=== PATIENT | male | born 1985 ===

== ENCOUNTER 2016-06-29 00:11 | Inpatient (IN) | payer OTHER ==
[2016-06-29 00:31] VITALS: BMI 26.4
--- NOTE | 2016-06-29 00:38 | ED PDOC ---
Arrival/HPI - General Chief Complaint: Abdominal Pain Time Seen by Provider: 06/29/16 00:16 Historian: Patient - History of Present Illness Narrative History of Present Illness (Text): 06/29/16 00:36 Blake Rosario is a 30 year old male, with no significant past medical history, who presents to the ED accompanied by friend complaining of RLQ pain for the past 4 days. Patient denies any shortness of breath, chest pain, nausea , vomiting, diarrhea, urinary symptoms, back pain, neck pain, headache, dizziness, or any other complaints. Time/Duration: < week (4 days) Symptom Onset: Gradual Symptom Course: Unchanged Activities at Onset: Rest, Light Context: Home Past Medical History - Provider Review Nursing Documentation Reviewed: Yes - Infectious Disease Hx of Infectious Diseases: None - Psychiatric Hx Substance Use: No - Anesthesia Hx Anesthesia: No Hx Anesthesia Reactions: No Hx Malignant Hyperthermia: No Family/Social History - Physician Review Nursing Documentation Reviewed: Yes Family/Social History: No Known Family HX Smoking Status: Never Smoked Hx Alcohol Use: Yes Frequency of alcohol use: Socially Hx Substance Use: No Allergies/Home Meds Allergies/Adverse Reactions: Allergies No Known Allergies Allergy (Verified 06/29/16 00:31) Review of Systems - Physician Review All systems were reviewed & negative as marked: Yes - Review of Systems Constitutional: Normal. absent: Fevers Eyes: Normal ENT: Normal Respiratory: Normal. absent: SOB Cardiovascular: Normal. absent: Chest Pain Gastrointestinal: Abdominal Pain. absent: Diarrhea, Nausea, Vomiting Genitourinary Male: Normal. absent: Dysuria, Frequency, Hematuria, Urinary Output Changes Musculoskeletal: Normal. absent: Back Pain, Neck Pain Skin: Normal. absent: Rash Neurological: Normal. absent: Headache, Dizziness Endocrine: Normal Hemo/Lymphatic: Normal Psychiatric: Normal Physical Exam Vital Signs Reviewed: Yes Vital Signs Temp Pulse Resp BP Pulse Ox 06/29/16 04:23 99.0 F 83 18 137/81 100 06/29/16 00:32 100.7 F H 98 H 17 142/89 98 Temperature: Febrile Blood Pressure: Normal Pulse: Regular Respiratory Rate: Normal Appearance: Positive for: Well-Appearing, Non-Toxic, Comfortable Pain Distress: None Mental Status: Positive for: Alert and Oriented X 3 - Systems Exam Head: Present: Atraumatic, Normocephalic Pupils: Present: PERRL Extroacular Muscles: Present: EOMI Conjunctiva: Present: Normal Mouth: Present: Moist Mucous Membranes Neck: Present: Normal Range of Motion Respiratory/Chest: Present: Clear to Auscultation, Good Air Exchange. No: Respiratory Distress, Accessory Muscle Use Cardiovascular: Present: Regular Rate and Rhythm, Normal S1, S2. No: Murmurs Abdomen: Present: Tenderness (RLQ tenderness), Normal Bowel Sounds. No: Distention, Peritoneal Signs Upper Extremity: Present: Normal Inspection. No: Cyanosis, Edema Lower Extremity: Present: Normal Inspection. No: Edema Neurological: Present: GCS=15, CN II-XII Intact, Speech Normal Skin: Present: Warm, Dry, Normal Color. No: Rashes Psychiatric: Present: Alert, Oriented x 3, Normal Insight, Normal Concentration Medical Decision Making ED Course and Treatment: 06/29/16 00:37 Impression: 30 y/o male c/o RLQ pain for 4 days. Plan: -- CT Abdomen and Pelvis -- Labs, lipase, blood culture -- Urinalysis -- IV fluids -- Reassess and disposition Progress Notes: 06/29/16 04:11 Reviewed labs, WBC: 13.3. Reviewed radiology, CT Abdomen and Pelvis shows: Positive appendicitis with abscess formation. Although the appendiceal borders are still identifiable, I suspect microperforation as there is indistinctness of the wall as it abuts the abscess as well as a very large amount of inflammation Paged surgical services manager control supervisor. 06/29/16 04:[address] Linares, surgical services manager control supervisor, who evaluated pt in ER , concurs with findings. Paged Dr. Barker, awaiting call back. 06/29/16 04:[address] Barker, surgeon, who is aware and agrees with plan. Accepts pt in to his service. Pt will be admitted to [facility] of appendicitis. Pt is no acute distress. Discussed plan and hospital admission plan with pt, who is aware and verbalizes understanding. - Lab Interpretations Microbiology Results: Microbiology Results 06/29/16 01:37 Blood Blood Culture - Preliminary NO GROWTH AFTER 24 HOURS 06/29/16 01:00 Blood Blood Culture - Preliminary NO GROWTH AFTER 24 HOURS Lab Results: 06/29/16 01:00 06/29/16 01:00 Lab Results 06/29/16 01:00: WBC 13.3 H, RBC 4.42, Hgb 12.4 L, Hct 36.7 L, MCV 83.0, MCH 28.1 , MCHC 33.8, RDW 18.2 H, Plt Count 219, MPV 8.7, Sodium 139, Potassium 3.8, Chloride 96 L, Carbon Dioxide 31, Anion Gap 16, BUN 8, Creatinine 0.6, Est GFR ( Amer) > 60, Est GFR (Non-Af Amer) > 60, Random Glucose 120 H, Calcium 9.4, Total Bilirubin 1.4 H, AST 34, ALT 20, Alkaline Phosphatase 102, Total Protein 9.2 H, Albumin 4.5, Globulin 4.7, Albumin/Globulin Ratio 1.0 L, Lipase 101 I have reviewed the lab results: Yes - RAD Interpretation Narrative RAD Interpretations (Text): CT Abdomen and Pelvis shows: The liver is normal. The spleen is normal. The pancreas is normal. No gallstones. No hydronephrosis or perinephric stranding. The appendix is identified on coronal images 52 through 65, axial images 94 - 106 (terminal ileum coronal image 51, axial images 93). The appendix is dilated measuring up to 10 mm. There is lack of intraluminal air with the lumen being filled with fluid. There is wall thickening and wall hyperemia. There is a large amount stranding in the surrounding fat consistent with inflammation. A fluid collection is present along the lateral aspect of the appendix (coronal image 60-61, axial images 103 through 107) measuring approximately 2.5 x 3 x 5 cm. There is a thin enhancing rim surrounding the fluid as well as a large amount of surrounding inflammation, both of which support abscess formation. IMPRESSION: Positive appendicitis with abscess formation. Although the appendiceal borders are still identifiable, I suspect microperforation as there is indistinctness of the wall as it abuts the abscess as well as a very large amount of inflammation Radiology Orders: 06/29/16 00:42 ABD & PELVIS IV CONTRAST ONLY [CT] Stat Flight Engineer Performance Qualified: Radiologist - Medication Orders Current Medication Orders: Acetaminophen (Tylenol 325mg Tab) 650 mg PO Q6H PRN PRN Reason: Fever >100.4 F Acetaminophen (Tylenol 650 Mg Supp) 650 mg RC Q6H PRN PRN Reason: Fever >100.4 F Hydromorphone HCl (Dilaudid) 0.5 mg IVP Q4H PRN PRN Reason: Pain, severe (8-10) Sodium Chloride (Sodium Chloride 0.9%) 1,000 mls @ 100 mls/hr IV .Q10H CHALINO Last Admin: 06/29/16 04:26 Dose: 100 MLS/HR eMAR Start Stop Document 06/29/16 04:26 MR (Rec: 06/29/16 04:26 MR [id number]) Intravenous Solution Start Date 06/29/16 Start Time 04:26 Morphine Sulfate (Morphine) 2 mg IVP Q4H PRN PRN Reason: Pain, moderate (4-7) Ondansetron HCl (Zofran Inj) 4 mg IVP Q4H PRN PRN Reason: Pain, moderate (4-7) Discontinued Medications Bupivacaine HCl (Marcaine 0.5%) Confirm Administered Dose 30 ml .ROUTE .STK-MED ONE Stop: 06/29/16 12:32 Last Admin: 06/29/16 14:16 Dose: 22 ML Fentanyl (Fentanyl) Confirm Administered Dose 100 mcg .ROUTE .STK-MED ONE Stop: 06/29/16 12:46 Fentanyl (Fentanyl) Confirm Administered Dose 100 mcg .ROUTE .STK-MED ONE Stop: 06/29/16 14:05 Glycopyrrolate (Robinul) Confirm Administered Dose 0.4 mg .ROUTE .STK-MED ONE Stop: 06/29/16 13:11 Hydromorphone HCl (Dilaudid) 0.5 mg IVP Q15M PRN PRN Reason: Pain, moderate (4-7) Stop: 06/29/16 13:54 Hydromorphone HCl (Dilaudid) 0.5 mg IVP Q15M PRN PRN Reason: Pain, moderate (4-7) Stop: 06/29/16 16:52 Sodium Chloride (Sodium Chloride 0.9%) 1,000 mls @ 999 mls/hr IV .Q1H1M STA Stop: 06/29/16 01:43 Last Admin: 06/29/16 01:17 Dose: 999 MLS/HR eMAR Start Stop Document 06/29/16 01:17 KEVIN (Rec: 06/29/16 01:17 KEVIN [id number]) Intravenous Solution Start Date 06/29/16 Start Time 01:17 End Date 06/29/16 End time 02:18 Total Infusion Time 61 Piperacillin Sod/Tazobactam Sod (Zosyn 3.375 In Ns 100ml) 100 mls @ 200 mls/hr IV STAT STA PRN Reason: Protocol Stop: 06/29/16 04:42 Last Admin: 06/29/16 04:32 Dose: 200 MLS/HR eMAR Start Stop Document 06/29/16 04:32 MR (Rec: 06/29/16 04:32 MR [id number]) Intravenous Solution Start Date 06/29/16 Start Time 04:32 End Date 06/29/16 End time 05:02 Total Infusion Time 30 Metronidazole (Flagyl) 100 mls @ 100 mls/hr IVPB STAT STA PRN Reason: Protocol Stop: 06/29/16 05:13 Last Admin: 06/29/16 05:04 Dose: 100 MLS/HR eMAR Start Stop Document 06/29/16 05:04 MR (Rec: 06/29/16 05:05 MR [id number]) Intravenous Solution Start Date 06/29/16 Start Time 05:05 End Date 06/29/16 End time 06:05 Total Infusion Time 60 Piperacillin Sod/Tazobactam Sod (Zosyn 3.375 In Ns 100ml) 100 mls @ 200 mls/hr IVPB Q6H CHALINO PRN Reason: Protocol Last Admin: 06/29/16 09:56 Dose: 200 MLS/HR eMAR Start Stop Document 06/29/16 09:56 KAILEY (Rec: 06/29/16 09:56 KAILEY [id number]) Intravenous Solution Start Date 06/29/16 Start Time 09:56 End Date 06/29/16 End time 10:26 Total Infusion Time 30 Lactated Ringer's (Lactated Ringer's) 1,000 mls @ 75 mls/hr IV .[id number] CHALINO Stop: 06/29/16 14:46 Piperacillin Sod/Tazobactam Sod (Zosyn 2.25 Gm In 0.9% 100 Ml) 100 mls @ 100 mls/hr IVPB Q6 CHALINO PRN Reason: Protocol Stop: 06/30/16 00:59 Last Admin: 06/29/16 23:55 Dose: 100 MLS/HR eMAR Start Stop Document 06/29/16 23:55 KGD (Rec: 06/29/16 23:55 KGD [id number]) Intravenous Solution Start Date 06/29/16 Start Time 23:55 End Date 06/29/16 End time 01:55 Total Infusion Time -1260 Lactated Ringer's (Lactated Ringer's) 1,000 mls @ 100 mls/hr IV .Q10H CHALINO Stop: 06/29/16 17:01 Iohexol (Omnipaque 350 100 Ml) Confirm Administered Dose 350 mg .ROUTE .STK-MED ONE Stop: 06/29/16 01:59 Ketorolac Tromethamine (Toradol) Confirm Administered Dose 30 mg .ROUTE .STK- MED ONE Stop: 06/29/16 13:15 Lidocaine (Lidocaine (Bolus)) Confirm Administered Dose 100 mg IV .STK-MED ONE Stop: 06/29/16 12:46 Neostigmine Methylsulfate (Neostigmine Methylsulfate) Confirm Administered Dose 3 mg IV .STK-MED ONE Stop: 06/29/16 13:11 Ondansetron HCl (Zofran Inj) Confirm Administered Dose 4 mg .ROUTE .STK-MED ONE Stop: 06/29/16 13:15 Propofol (Diprivan) Confirm Administered Dose 400 mg .ROUTE .STK-MED ONE Stop: 06/29/16 12:46 Rocuronium [place] (Zemuron) Confirm Administered Dose 50 mg .ROUTE .STK-MED ONE Stop: 06/29/16 12:47 Succinylcholine Chloride (Quelicin) Confirm Administered Dose 200 mg IV .STK- MED ONE Stop: 06/29/16 12:47 - Scribe Statement The provider has reviewed the documentation as recorded by the Lazarus Michaels Provider Attestation: All medical record entries made by the Lazarus were at my direction and personally dictated by me. I have reviewed the chart and agree that the record accurately reflects my personal performance of the history, physical exam, medical decision making, and the department course for this patient. I have also personally directed, reviewed, and agree with the discharge instructions and disposition. Disposition/Present on Arrival - Present on Arrival Any Indicators Present on Arrival: No History of DVT/PE: No History of Uncontrolled Diabetes: No Urinary Catheter: No History of Decub. Ulcer: No History Surgical Site Infection Following: None - Disposition Have Diagnosis and Disposition been Completed?: Yes Diagnosis: Appendicitis Disposition: HOSPITALIZED Disposition Time: 04:31 Patient Plan: Admission Patient Problems: Current Active Problems Problem Status Diagnosed Appendicitis Acute Condition: GOOD
[2016-06-29] MEDS ORDERED: Sodium Chloride 0.9% 1,000 ML IV STA (00:43)
[2016-06-29 01:10] LABS: HEMATOCRIT 36.7 % (42.0-52.0); MEAN CORPUSCULAR HEMOGLOBIN 28.1 pg (25.0-35.0); MEAN CORPUSCULAR HGB CONC 33.8 g/dl (31.0-37.0); MEAN PLATELET VOLUME 8.7 fl (7.0-11.0); RED CELL DISTRIBUTION WIDTH 18.2 % (11.5-14.5); WHITE BLOOD COUNT 13.3 10^3/ul (4.5-11.0)
[2016-06-29 01:23] LABS: ALKALINE PHOSPHATASE 102 U/L (38-133); ALT/SGPT 20 U/L (7-56); AST/SGOT 34 U/L (15-59); BILIRUBIN,TOTAL 1.4 mg/dL (0.2-1.3); BLOOD UREA NITROGEN 8 mg/dL (7-21); CALCIUM 9.4 mg/dL (8.4-10.5); CARBON DIOXIDE 31 mmol/L (21-33); CHLORIDE 96 mmol/L (98-107); GFR AFRICAN-AMERICAN > 60; GLUCOSE,RANDOM 120 mg/dL (70-110); LIPASE 101 U/L (23-300); POTASSIUM 3.8 mmol/L (3.6-5.0); SODIUM 139 mmol/L (132-148); TOTAL PROTEIN 9.2 g/dL (5.8-8.3)
[2016-06-29] MEDS ORDERED: Iohexol 350 MG/100 ML VIAL ONE (01:58)
--- NOTE | 2016-06-29 04:07 | CT ---
EXAM: CT Abdomen and Pelvis With Intravenous Contrast. CLINICAL HISTORY: 30 years old, male; Pain; Abdominal pain; Localized; Right lower quadrant (rlq); Additional info: Rlq abdominal pain TECHNIQUE: Axial computed tomography images of the abdomen and pelvis with intravenous contrast. This CT exam was performed using one or more of the following dose reduction techniques: automated exposure control, adjustment of the mA and/or kV according to patient size, and/or use of iterative reconstruction technique. Coronal and sagittal reformatted images were created and reviewed. CONTRAST: 100 mL of omni 350 administered intravenously. EXAM DATE/TIME: 06/29/2016 12:42 AM COMPARISON: No relevant prior studies available. FINDINGS: The liver is normal. The spleen is normal. The pancreas is normal. No gallstones. No hydronephrosis or perinephric stranding. The appendix is identified on coronal images 52 through 65, axial images 94 - 106 (terminal ileum coronal image 51, axial images 93). The appendix is dilated measuring up to 10 mm. There is lack of intraluminal air with the lumen being filled with fluid. There is wall thickening and wall hyperemia. There is a large amount stranding in the surrounding fat consistent with inflammation. A fluid collection is present along the lateral aspect of the appendix (coronal image 60-61, axial images 103 through 107) measuring approximately 2.5 x 3 x 5 cm. There is a thin enhancing rim surrounding the fluid as well as a large amount of surrounding inflammation, both of which support abscess formation. IMPRESSION: Positive appendicitis with abscess formation. Although the appendiceal borders are still identifiable, I suspect microperforation as there is indistinctness of the wall as it abuts the abscess as well as a very large amount of inflammation.
[2016-06-29] MEDS ORDERED: Piperacillin/Tazobact 3.375 gm 100 ML IV STA (04:13)
[2016-06-29] MEDS ORDERED: Morphine 2 mg/ml ISec IVP PRN (04:13)
[2016-06-29] MEDS ORDERED: metroNIDAZOLE IV 500 mg/100 ml 100 ML IVPB STA (04:14)
[2016-06-29] MEDS: Sodium Chloride 0.9% 1,000 ML IV SCH (04:26)
--- NOTE | 2016-06-29 08:27 | CP.PCM.HP ---
History of Present Illness - History of Present Illness History of Present Illness: H&P Pt is a 30M with no PMHx who presented to [facility] [place] with complaints of abdominal pain that started on thursday. Pt states pain is located in the RLQ w/o any radiation. He initially attributed the pain to a regular stomach ache and decided to wait it out. However, last night pain increased and he came to the ER. He denies any other symptoms such N/V/D. Denies F/C. In the ER, a CT abdomen/pelvis was obtained and shows appendicitis with surrounding inflammatory changes likely secondary to microperforation. Surgery called to evaluate. Currently, pt is very comfortable and states his pain is better. He denies other complaints at this time. PMHx: denies PSHx: denies SocialHx: denies smoking/drugs, social EtOH NKDA Present on Admission - Present on Admission Any Indicators Present on Admission: No Review of Systems - Review of Systems All systems: reviewed and no additional remarkable complaints except (as per HPI ) Past Patient History - Infectious Disease Hx of Infectious Diseases: None - Past Social History Smoking Status: Never Smoked Alcohol: Social - CARDIAC Hx Cardiac Disorders: No - PULMONARY Hx Respiratory Disorders: No - NEUROLOGICAL Hx Neurological Disorder: No - HEENT Hx HEENT Problems: No - RENAL Hx Chronic Kidney Disease: No - ENDOCRINE/METABOLIC Hx Endocrine Disorders: No - HEMATOLOGICAL/ONCOLOGICAL Hx Blood Disorders: No - INTEGUMENTARY Hx Dermatological Problems: No - MUSCULOSKELETAL/RHEUMATOLOGICAL Hx Musculoskeletal Disorders: No Hx Falls: No - GASTROINTESTINAL Hx Gastrointestinal Disorders: No - GENITOURINARY/GYNECOLOGICAL Hx Genitourinary Disorders: No - PSYCHIATRIC Hx Psychophysiologic Disorder: No - SURGICAL HISTORY Hx Surgeries: No - ANESTHESIA Hx Anesthesia: No Hx Anesthesia Reactions: No Hx Malignant Hyperthermia: No Meds Allergies/Adverse Reactions: Allergies Allergy/AdvReac Type Severity Reaction Status Date / Time No Known Allergies Allergy Verified 06/29/16 00:31 Physical Exam - Constitutional Appears: Well, No Acute Distress - Head Exam Head Exam: ATRAUMATIC, NORMOCEPHALIC - Eye Exam Eye Exam: Normal appearance - ENT Exam ENT Exam: Mucous Membranes Moist - Respiratory Exam Respiratory Exam: NORMAL BREATHING PATTERN - Cardiovascular Exam Cardiovascular Exam: RRR - GI/Abdominal Exam GI & Abdominal Exam: Soft, Tenderness (RLQ). absent: Distended, Guarding, Rebound - Extremities Exam Extremities exam: Positive for: full ROM. Negative for: tenderness - Neurological Exam Neurological exam: Alert, Oriented x3 - Skin Skin Exam: Dry, Intact, Warm Results - Vital Signs Recent Vital Signs: Last Vital Signs Temp 98.6 F 06/29/16 08:13 Pulse 70 06/29/16 08:13 Resp 20 06/29/16 08:13 BP 127/81 06/29/16 08:13 Pulse Ox 99 06/29/16 08:13 - Labs Result Diagrams: 06/29/16 01:00 06/29/16 01:00 - Imaging and Cardiology CT scan - abdomen Status: Image reviewed by me, Report reviewed by me Assessment & Plan - Assessment and Plan (Free Text) Assessment: 30M with acute appendicitis Plan: - NPO - IVF, IV ABX, pain management - will discuss with Dr. Mj Linares, PGY-2 Surgery
[2016-06-29] MEDS ORDERED: Piperacillin/Tazobact 3.375 gm 100 ML IVPB SCH (10:00)
[2016-06-29] MEDS: Bupivacaine 0.5% Inj(30mL) ONE ×2 (12:01→14:16)
[2016-06-29] MEDS ORDERED: HYDROmorphone 0.5 mg/0.5 ml ISec IVP PRN ×3 (12:38→14:51)
[2016-06-29] MEDS ORDERED: Lactated Ringer's 1,000 ML IV SCH ×2 (12:45→15:00)
[2016-06-29] MEDS ORDERED: Propofol 10 mg/ml Inj (20 ML) ONE (12:45)
[2016-06-29] MEDS ORDERED: Succinylcholine 200 mg/10 ml Inj IV ONE (12:46)
[2016-06-29] MEDS ORDERED: Rocuronium 10 mg/ml (5 ml) ONE (12:46)
[2016-06-29] MEDS ORDERED: Neostigmine Methylsulfate 3mg/3ml Syringe IV ONE (13:10)
--- NOTE | 2016-06-29 14:45 | PCM.SURG1 ---
Surgeon's Initial Post Op Note - Surgeon's Notes Surgeon: Dr. Barker Student Support Services Director: Dr. Escudero PGY-1 Type of Anesthesia: General Endo Pre-Operative Diagnosis: Perforated appendicitis Operative Findings: See operative note Post-Operative Diagnosis: Perforated appendicitis with abscess Operation Performed: Laparoscopic appendectomy with washout Specimen/Specimens Removed: Appendix, fibrinous tissue Estimated Blood Loss: EBL {In ML}: 50 Blood Products Given: N/A Drains Used: Trey Date of Surgery/Procedure: 06/29/16 Time of Surgery/Procedure: 14:44
[2016-06-29] MEDS: Piperacillin/Tazobact 2.25gm 100 ML IVPB SCH ×2 (18:36→23:55)
--- NOTE | 2016-06-30 07:30 | CP.PCM.PN ---
Subjective - Date & Time of Evaluation Date of Evaluation: 06/30/16 Time of Evaluation: 07:26 - Subjective Subjective: SURGERY NOTE FOR DR. HOOPER 30M seen and examined at bedside. Patient states he feels well, denies pain, nausea, vomiting, admits to flatus, but denies bowel movements. Patient is tolerating clears. Objective - Vital Signs/Intake and Output Vital Signs (last 24 hours): Temp Pulse Resp BP Pulse Ox 98.5 F 88 18 121/77 98 06/29/16 17:19 06/29/16 17:19 06/29/16 17:19 06/29/16 17:19 06/29/16 17:19 Intake and Output: 06/30/16 06/30/16 06:59 18:59 Intake Total 1000 1200 Output Total 500 80 Balance 500 1120 - Medications Medications: Current Medications Acetaminophen (Tylenol 325mg Tab) 650 mg PO Q6H PRN PRN Reason: Fever >100.4 F Acetaminophen (Tylenol 650 Mg Supp) 650 mg RC Q6H PRN PRN Reason: Fever >100.4 F Hydromorphone HCl (Dilaudid) 0.5 mg IVP Q4H PRN PRN Reason: Pain, severe (8-10) Sodium Chloride (Sodium Chloride 0.9%) 1,000 mls @ 100 mls/hr IV .Q10H CHALINO Last Admin: 06/29/16 04:26 Dose: 100 mls/hr Morphine Sulfate (Morphine) 2 mg IVP Q4H PRN PRN Reason: Pain, moderate (4-7) Ondansetron HCl (Zofran Inj) 4 mg IVP Q4H PRN PRN Reason: Pain, moderate (4-7) - Constitutional Appears: Well, Non-toxic, No Acute Distress - Head Exam Head Exam: ATRAUMATIC - Eye Exam Eye Exam: EOMI, PERRL - Respiratory Exam Respiratory Exam: Clear to Ausculation Bilateral, NORMAL BREATHING PATTERN - Cardiovascular Exam Cardiovascular Exam: REGULAR RHYTHM, +S1, +S2 - GI/Abdominal Exam GI & Abdominal Exam: Soft. absent: Distended, Firm, Guarding, Rigid, Tenderness , Rebound Additional comments: Dressings in place, clean dry intact. CONCEPCION in place - drain 80cc/24hrs - Neurological Exam Neurological Exam: Alert, Awake - Skin Skin Exam: Dry, Intact, Normal Color, Warm Assessment and Plan - Assessment and Plan (Free Text) Assessment: 30M s/p Laparoscopic appendectomy POD#1 Plan: - Pain control, anti-emetic - Continue liquid diet - Drain management - Await bowel movement - Advance diet as tolerated - Monitor vitals/labs Further recs discuss with Dr. Mj Graves, PGY1
[2016-06-30 08:42] LABS: ADD MANUAL DIFF? NO
[2016-06-30 08:52] LABS: BASO # 0.01 K/mm3 (0.0-2.0); BASO % 0.1 % (0.0-3.0); EOS % 0.2 % (1.5-5.0); GRAN # 7.27 (1.4-6.5); GRAN % 73.3 % (50.0-68.0); HEMATOCRIT 30.5 % (42.0-52.0); LYMPH # 1.3 (1.2-3.4); LYMPH % 13.4 % (22.0-35.0); MEAN CELL VOLUME 83.6 fL (80.0-105.0); MEAN CORPUSCULAR HEMOGLOBIN 27.4 pg (25.0-35.0); MEAN CORPUSCULAR HGB CONC 32.8 g/dl (31.0-37.0); MEAN PLATELET VOLUME 8.4 fl (7.0-11.0); MONO # 1.3 (0.1-0.6); PLATELET COUNT 203 10^3/uL (120.0-450.0); RED CELL DISTRIBUTION WIDTH 17.9 % (11.5-14.5); WHITE BLOOD COUNT 9.9 10^3/ul (4.5-11.0)
[2016-06-30 08:54] LABS: ALB/GLOB RATIO 0.9 (1.1-1.8); ALKALINE PHOSPHATASE 97 U/L (38-133); ALT/SGPT 24 U/L (7-56); AST/SGOT 30 U/L (15-59); BILIRUBIN,TOTAL 1.1 mg/dL (0.2-1.3); BLOOD UREA NITROGEN 8 mg/dL (7-21); CALCIUM 7.8 mg/dL (8.4-10.5); CARBON DIOXIDE 27 mmol/L (21-33); CHLORIDE 96 mmol/L (95-110); GFR AFRICAN-AMERICAN > 60; GLUCOSE,RANDOM 221 mg/dL (70-110); POTASSIUM 3.1 mmol/L (3.6-5.0); SODIUM 133 mmol/L (132-148); TOTAL PROTEIN 6.5 g/dL (5.8-8.3)
[2016-06-30] MEDS ORDERED: Potassium Chloride 20 mEq ER Tab PO ONE (11:59)
[2016-06-30] MEDS: Sodium Chloride 0.9% 1,000 ML IV SCH (15:46)
[2016-06-30] MEDS: Piperacillin/Tazobact 3.375 gm 100 ML IVPB SCH ×2 (17:16→23:59)
[2016-07-01 05:47] LABS: HEMATOCRIT 30.1 % (42.0-52.0); MEAN CELL VOLUME 83.4 fL (80.0-105.0); MEAN CORPUSCULAR HEMOGLOBIN 27.4 pg (25.0-35.0); MEAN CORPUSCULAR HGB CONC 32.9 g/dl (31.0-37.0); MEAN PLATELET VOLUME 8.6 fl (7.0-11.0); RED CELL DISTRIBUTION WIDTH 17.1 % (11.5-14.5); WHITE BLOOD COUNT 10.6 10^3/ul (4.5-11.0)
[2016-07-01 07:01] LABS: BLOOD UREA NITROGEN 5 mg/dL (7-21); CALCIUM 8.2 mg/dL (8.4-10.5); CARBON DIOXIDE 27 mmol/L (21-33); CHLORIDE 99 mmol/L (95-110); GFR AFRICAN-AMERICAN > 60; GLUCOSE,RANDOM 99 mg/dL (70-110); POTASSIUM 3.3 mmol/L (3.6-5.0); SODIUM 137 mmol/L (132-148)
--- NOTE | 2016-07-01 07:05 | CP.PCM.PN ---
Subjective - Date & Time of Evaluation Date of Evaluation: 07/01/16 Time of Evaluation: 07:02 - Subjective Subjective: SURGERY NOTE FOR DR. HOOPER 30M seen and examined at bedside. Patient denies pain, nausea, vomiting, admitting to passing gas and having normal bowel movements. Objective - Vital Signs/Intake and Output Vital Signs (last 24 hours): Temp Pulse Resp BP Pulse Ox 99.5 F 103 H 18 126/78 98 06/30/16 16:56 06/30/16 16:00 06/30/16 16:00 06/30/16 16:00 06/30/16 16:00 Intake and Output: 07/01/16 07/01/16 06:59 18:59 Intake Total 900 Output Total 630 Balance 270 - Medications Medications: Current Medications Acetaminophen (Tylenol 325mg Tab) 650 mg PO Q6H PRN PRN Reason: Fever >100.4 F Acetaminophen (Tylenol 650 Mg Supp) 650 mg RC Q6H PRN PRN Reason: Fever >100.4 F Last Admin: 06/30/16 15:42 Dose: 650 mg Hydromorphone HCl (Dilaudid) 0.5 mg IVP Q4H PRN PRN Reason: Pain, severe (8-10) Sodium Chloride (Sodium Chloride 0.9%) 1,000 mls @ 100 mls/hr IV .Q10H CHALINO Last Admin: 06/30/16 15:46 Dose: 100 mls/hr Morphine Sulfate (Morphine) 2 mg IVP Q4H PRN PRN Reason: Pain, moderate (4-7) Ondansetron HCl (Zofran Inj) 4 mg IVP Q4H PRN PRN Reason: Pain, moderate (4-7) - Labs Labs: 07/01/16 04:30 06/30/16 08:30 - Constitutional Appears: Well, Non-toxic, No Acute Distress - Respiratory Exam Respiratory Exam: Clear to Ausculation Bilateral, NORMAL BREATHING PATTERN - Cardiovascular Exam Cardiovascular Exam: REGULAR RHYTHM, +S1, +S2 - GI/Abdominal Exam GI & Abdominal Exam: Soft. absent: Distended, Firm, Guarding, Rigid, Tenderness , Rebound Additional comments: incisions clean dry intact, drain in place, serosang output - Neurological Exam Neurological Exam: Alert, Awake Assessment and Plan - Assessment and Plan (Free Text) Assessment: 30M s/p Laparoscopic appendectomy POD#2 Plan: - Pain control, anti-emetic, Abx - Continue liquid diet - Drain management - diest advanced to regular - Monitor vitals/labs Further recs discuss with Dr. Mj Graves, PGY1
[2016-07-01] MEDS ORDERED: Oxycodone/Acetaminophen 5/325 mg Tab PO PRN (07:10)
[2016-07-01] MEDS: Potassium Chloride 20 mEq ER Tab PO SCH (08:45)
[2016-07-01] MEDS: Sodium Chloride 0.9% 1,000 ML IV SCH ×2 (08:46→23:19)
[2016-07-01] MEDS: Piperacillin/Tazobact 3.375 gm 100 ML IVPB SCH ×3 (11:43→23:19)
[2016-07-02] MEDS: Piperacillin/Tazobact 3.375 gm 100 ML IVPB SCH (05:25)
[2016-07-02 07:02] LABS: ADD MANUAL DIFF? NO
[2016-07-02 07:18] LABS: BASO # 0.01 K/mm3 (0.0-2.0); BASO % 0.1 % (0.0-3.0); EOS # 0.2 (0.0-0.7); EOS % 2.2 % (1.5-5.0); GRAN # 8.15 (1.4-6.5); GRAN % 74.7 % (50.0-68.0); HEMATOCRIT 31.1 % (42.0-52.0); LYMPH # 1.3 (1.2-3.4); LYMPH % 11.4 % (22.0-35.0); MEAN CELL VOLUME 83.8 fL (80.0-105.0); MEAN CORPUSCULAR HEMOGLOBIN 27.5 pg (25.0-35.0); MEAN CORPUSCULAR HGB CONC 32.8 g/dl (31.0-37.0); MEAN PLATELET VOLUME 8.6 fl (7.0-11.0); MONO # 1.3 (0.1-0.6); MONO % 11.6 % (1.0-6.0); PLATELET COUNT 271 10^3/uL (120.0-450.0); WHITE BLOOD COUNT 10.9 10^3/ul (4.5-11.0)
--- NOTE | 2016-07-02 07:29 | CP.PCM.PN ---
Subjective - Date & Time of Evaluation Date of Evaluation: 07/02/16 Time of Evaluation: 06:40 - Subjective Subjective: Surgery Progress note for Dr Barker: Pt seen and examined at bedside. No acute events overnight. Pt states his pain is well controlled. Tolerating diet. Denies any n/v. Denies any Headaches, dizziness, f/c, sob, cp, abd pain, urinary changes. Objective - Vital Signs/Intake and Output Vital Signs (last 24 hours): Temp Pulse Resp BP Pulse Ox 99.1 F 88 20 123/75 98 07/02/16 06:20 07/01/16 16:00 07/01/16 16:00 07/01/16 16:00 07/01/16 16:00 Intake and Output: 07/02/16 07/02/16 06:59 18:59 Intake Total 1989 Output Total 192 Balance 65 - Medications Medications: Current Medications Acetaminophen (Tylenol 325mg Tab) 650 mg PO Q6H PRN PRN Reason: Fever >100.4 F Last Admin: 07/01/16 22:03 Dose: 650 mg Acetaminophen (Tylenol 650 Mg Supp) 650 mg RC Q6H PRN PRN Reason: Fever >100.4 F Last Admin: 06/30/16 15:42 Dose: 650 mg Sodium Chloride (Sodium Chloride 0.9%) 1,000 mls @ 125 mls/hr IV .Q8H CHALINO Last Admin: 07/01/16 23:19 Dose: 125 mls/hr Morphine Sulfate (Morphine) 2 mg IVP Q4H PRN PRN Reason: Pain, moderate (4-7) Ondansetron HCl (Zofran Inj) 4 mg IVP Q4H PRN PRN Reason: Pain, moderate (4-7) Oxycodone/Acetaminophen (Percocet 5/325 Mg Tab) 1 tab PO Q4H PRN PRN Reason: Pain, moderate (4-7) Stop: 07/04/16 07:11 Potassium Chloride (K-Dur 20 Meq Er Tab) 20 meq PO BRK [facility] Last Admin: 07/01/16 08:45 Dose: 20 meq - Labs Labs: 07/01/16 04:30 07/01/16 04:30 - Respiratory Exam Respiratory Exam: NORMAL BREATHING PATTERN - Cardiovascular Exam Cardiovascular Exam: REGULAR RHYTHM, +S1, +S2. absent: Murmur - GI/Abdominal Exam GI & Abdominal Exam: Soft, Normal Bowel Sounds. absent: Distended, Tenderness Additional comments: incisions CDI drain in place, serosang output 25cc - Neurological Exam Neurological Exam: Alert, Awake, CN II-XII Intact, Normal Gait, Oriented x3 Assessment and Plan - Assessment and Plan (Free Text) Assessment: 30M presents with abdominal pain s/p Laparoscopic appendectomy POD#3 - Pain control - Cont antibiotics as per ID recs - Drain management - Cont regular diet as tolerated - Monitor vitals & labs - Further recs discuss with Dr. Mj Eng IM Resident PGY-1
[2016-07-02 07:31] LABS: ALB/GLOB RATIO 0.8 (1.1-1.8); ALKALINE PHOSPHATASE 95 U/L (38-133); ALT/SGPT 24 U/L (7-56); AST/SGOT 32 U/L (15-59); BILIRUBIN,TOTAL 0.6 mg/dL (0.2-1.3); BLOOD UREA NITROGEN 5 mg/dL (7-21); CALCIUM 8.4 mg/dL (8.4-10.5); CARBON DIOXIDE 31 mmol/L (21-33); CHLORIDE 100 mmol/L (95-110); GFR AFRICAN-AMERICAN > 60; GLUCOSE,RANDOM 128 mg/dL (70-110); SODIUM 138 mmol/L (132-148)
--- NOTE | 2016-07-02 08:10 | OP ---
PROCEDURE DATE: 06/29/2016 PREOPERATIVE DIAGNOSIS: Acute appendicitis. POSTOPERATIVE DIAGNOSIS: Acute appendicitis. OPERATION PERFORMED: Laparoscopic appendectomy. SURGEON: Dr. Forrest Barker. [employer] SALES CONSULTANT: Resident. A CAT scan showed a perforation from appendicitis. DESCRIPTION OF PROCEDURE: After the appropriate timeout where the patient was tested for name, numbe r, procedure, laterality, the consent, his name, number and wrist band and my name, the abdomen was p repped and draped in usual manner. A supraumbilical incision was made. That was dissected down to t he fascia with the Visiport. A suprapubic and a left lower quadrant port 5 mm was placed. Using the Prestige clamp as a blunt instrument, the cecum was peeled off the abdominal wall through very mild adhesions. In so doing, an abscess of creamy material was aspirated and debrided and sent for cultur e. By slow and circumferential dissection, the cecum was rolled towards the midline. There were sev eral adhesions inferiorly that were taken down using the Harmonic. With great difficulty, we were ab le to eventually tease out the appendix. Pulling away the distal ileum, we could see what looked lik e the base. This was dissected down and a window was obtained and with great difficulty, the HEATH was run in and fired, dividing it right at its base. Going in a retrograde manner, the appendix was pee led off the cecum by sharp, blunt and harmonic dissection where the black tip was only seen during th is dissection. This allowed us to peel off the appendix: The appendiceal artery was identified, amanda monically ligated and the appendix placed in a bag and removed. It was very inflamed and required a lot of irrigation and debridement, but there was nothing else untoward. The cecum was intact. Looki ng around, nothing else was untoward and after the EndoStitch was placed in the umbilicus, a drain wa s placed through the suprapubic site and placed in the abscess cavity. It was trimmed down and sutur ed in place. The CO2 was removed after a final look around. The sutures were closed and subcuticula r stitches were placed with Dermabond. The patient was taken to recovery room in good condition afte r sponge and needle counts were declared correct. Forrest Barker MD cc: [id number] TT: 07/01/2016 11:46:29 tn
[2016-07-02] MEDS: Potassium Chloride 20 mEq ER Tab PO SCH (08:38)
[2016-07-02] MEDS: Meropenem 1 GM in Sodium Chloride 0.9% 100 ML IVPB SCH ×3 (10:40→22:36)
[2016-07-02] MEDS: Vancomycin 1gm in NS 250ml 250 ML IVPB SCH ×2 (10:48→23:40)
[2016-07-02 11:33] LABS: URINE BILIRUBIN NEGATIVE (NEGATIVE); URINE BLOOD NEGATIVE (NEGATIVE); URINE GLUCOSE (UA) 250 mg/dL (NEGATIVE); URINE KETONE NEGATIVE (NEGATIVE); URINE LEUKOCYTE ESTERASE NEGATIVE Leu/uL (NEGATIVE); URINE PROTEIN NEGATIVE mg/dL (<30 mg/dL); URINE UROBILINOGEN 0.2 E.U./dL (<1 E.U./dL)
[2016-07-02 11:41] LABS: URINE APPEARANCE CLEAR (CLEAR); URINE COLOR YELLOW (YELLOW)
[2016-07-02] MEDS ORDERED: Piperacillin/Tazobact 3.375 gm 100 ML IVPB SCH (12:00)
--- NOTE | 2016-07-02 12:33 | RAD ---
HISTORY: rule out pneumonia COMPARISON: No prior. TECHNIQUE: Chest PA and lateral FINDINGS: LUNGS: No active pulmonary disease. PLEURA: No significant pleural effusion identified. No pneumothorax apparent. CARDIOVASCULAR: Normal. OSSEOUS STRUCTURES: No significant abnormalities. VISUALIZED UPPER ABDOMEN: Normal. OTHER FINDINGS: None. IMPRESSION: No active disease.
[2016-07-02] MEDS: Sodium Chloride 0.9% 1,000 ML IV SCH ×2 (12:52→23:42)
--- NOTE | 2016-07-02 17:07 | CP.PCM.CON ---
History of Present Illness - History of Present Illness History of Present Illness: 30 year old male with no significant past medical history was initially admitted for abdominal pain in the right lower quadrant which started the day prior to admission. CT scan revealed appendicitis and appendectomy was done which also revealed perforation and periappendiceal abscess. Surgery was done on 06/29/2016. He had been doing well and has started to eat. He still has an abdominal drain. He developed fever yesterday again and Infectious Diseases consult is requested to further evaluate and manage. Currently the patient is comfortable on a chair, not in distress. The patient did not have chills despite having fever, no nausea or vomiting, no diarrhea, no dysuria or hematuria, no chest pain, no SOB, no cough, no sore throat, no headache or dizziness, no bleeding from the surgical site, no abdominal pain, no dysphagia or odynophagia. Social history: Denies smoking, no alcohol abuse, no illicit drug use Review of Systems - Review of Systems All systems: reviewed and no additional remarkable complaints except (per HPI) Past Patient History - Infectious Disease Hx of Infectious Diseases: None - Past Medical History & Family History Past Medical History?: No - Past Social History Smoking Status: Never Smoked Alcohol: Occasional (reviewed patient's histories and I agree with above findings) Drugs: Denies - CARDIAC Hx Cardiac Disorders: No - PULMONARY Hx Respiratory Disorders: No - NEUROLOGICAL Hx Neurological Disorder: No - HEENT Hx HEENT Problems: No - RENAL Hx Chronic Kidney Disease: No - ENDOCRINE/METABOLIC Hx Endocrine Disorders: No - HEMATOLOGICAL/ONCOLOGICAL Hx Blood Transfusions: No Hx Blood Transfusion Reaction: No - INTEGUMENTARY Hx Dermatological Problems: No - MUSCULOSKELETAL/RHEUMATOLOGICAL Hx Musculoskeletal Disorders: No Hx Falls: No - GASTROINTESTINAL Hx Gastrointestinal Disorders: No - GENITOURINARY/GYNECOLOGICAL Hx Genitourinary Disorders: No - PSYCHIATRIC Hx Substance Use: No - SURGICAL HISTORY Hx Surgeries: No - ANESTHESIA Hx Anesthesia: No Hx Anesthesia Reactions: No Hx Malignant Hyperthermia: No Meds Allergies/Adverse Reactions: Allergies Allergy/AdvReac Type Severity Reaction Status Date / Time No Known Allergies Allergy Verified 06/29/16 00:31 - Medications Medications: Current Medications Acetaminophen (Tylenol 325mg Tab) 650 mg PO Q6H PRN PRN Reason: Fever >100.4 F Last Admin: 07/01/16 22:03 Dose: 650 mg Acetaminophen (Tylenol 650 Mg Supp) 650 mg RC Q6H PRN PRN Reason: Fever >100.4 F Last Admin: 06/30/16 15:42 Dose: 650 mg Heparin Sodium (Porcine) (Heparin) 5,000 units SC Q12 [facility] PRN Reason: Protocol Sodium Chloride (Sodium Chloride 0.9%) 1,000 mls @ 125 mls/hr IV .Q8H [facility] Last Admin: 07/01/16 23:19 Dose: 125 mls/hr Meropenem 1 gm/ Sodium (Chloride) 100 mls @ 100 mls/hr IVPB Q8 [facility] PRN Reason: Protocol Stop: 07/09/16 10:01 Last Admin: 07/02/16 13:40 Dose: 100 mls/hr Vancomycin HCl (Vancomycin 1gm) 250 mls @ 167 mls/hr IVPB Q12H [facility] PRN Reason: Protocol Last Admin: 07/02/16 10:48 Dose: 167 mls/hr Morphine Sulfate (Morphine) 2 mg IVP Q4H PRN PRN Reason: Pain, moderate (4-7) Ondansetron HCl (Zofran Inj) 4 mg IVP Q4H PRN PRN Reason: Pain, moderate (4-7) Oxycodone/Acetaminophen (Percocet 5/325 Mg Tab) 1 tab PO Q4H PRN PRN Reason: Pain, moderate (4-7) Stop: 07/04/16 07:11 Potassium Chloride (K-Dur 20 Meq Er Tab) 20 meq PO BRK [facility] Last Admin: 07/02/16 08:38 Dose: 20 meq Physical Exam - Constitutional Appears: Non-toxic, No Acute Distress - Head Exam Head Exam: NORMAL INSPECTION - ENT Exam ENT Exam: Mucous Membranes Moist - Neck Exam Neck exam: Negative for: Lymphadenopathy, Meningismus - Respiratory Exam Respiratory Exam: Decreased Breath Sounds - Cardiovascular Exam Cardiovascular Exam: +S1, +S2 - GI/Abdominal Exam GI & Abdominal Exam: Soft. absent: Tenderness Additional comments: abdominal drain in place with serosanguinous discharge Results - Vital Signs Recent Vital Signs: Last Vital Signs Temp 99.1 F 07/02/16 07:30 Pulse 86 07/02/16 07:30 Resp 20 07/02/16 07:30 BP 125/81 07/02/16 07:30 Pulse Ox 98 07/02/16 07:30 - Labs Result Diagrams: 07/02/16 06:30 07/02/16 06:30 Labs: Laboratory Results - last 24 hr 07/02/16 07/02/16 06:30 11:13 WBC 10.9 RBC 3.71 Hgb 10.2 L Hct 31.1 L MCV 83.8 MCH 27.5 MCHC 32.8 RDW 17.0 H Plt Count 271 MPV 8.6 Gran % 74.7 H Lymph % (Auto) 11.4 L [place] % (Auto) 11.6 H Eos % (Auto) 2.2 Baso % (Auto) 0.1 Gran # 8.15 H Lymph # 1.3 [place] # 1.3 H Eos # 0.2 Baso # 0.01 Sodium 138 Potassium 4.0 Chloride 100 Carbon Dioxide 31 Anion Gap 11 BUN 5 L Creatinine 0.6 Est GFR ( Amer) > 60 Est GFR (Non-Af Amer) > 60 Random Glucose 128 H Calcium 8.4 Total Bilirubin 0.6 AST 32 ALT 24 Alkaline Phosphatase 95 Total Protein 7.0 Albumin 3.2 Globulin 3.8 Albumin/Globulin Ratio 0.8 L Urine Color Yellow Urine Appearance Clear Urine pH 7.0 Ur Specific [place] 1.015 Urine Protein Negative Urine Glucose (UA) 250 H Urine Ketones Negative Urine Blood Negative Urine Nitrate Negative Urine Bilirubin Negative Urine Urobilinogen 0.2 Ur Leukocyte Esterase Negative Assessment & Plan - Assessment and Plan (Free Text) Plan: Assessment Systemic Inflammatory Response Syndrome (fever and tachycardia) in a patient post-appendectomy POD #3, R/O sepsis Plan Check blood cx, urine cx, PCT, CXR, abdominal drain fluid cx started patient on Vancomycin and changed Zosyn to Merrem Will monitor clinically
[2016-07-03] MEDS: Meropenem 1 GM in Sodium Chloride 0.9% 100 ML IVPB SCH ×2 (05:52→14:01)
[2016-07-03 06:49] LABS: HEMATOCRIT 31.4 % (42.0-52.0); MEAN CELL VOLUME 83.5 fL (80.0-105.0); MEAN CORPUSCULAR HEMOGLOBIN 27.1 pg (25.0-35.0); MEAN CORPUSCULAR HGB CONC 32.5 g/dl (31.0-37.0); MEAN PLATELET VOLUME 8.3 fl (7.0-11.0); RED CELL DISTRIBUTION WIDTH 16.8 % (11.5-14.5); WHITE BLOOD COUNT 7.7 10^3/ul (4.5-11.0)
--- NOTE | 2016-07-03 07:31 | CP.PCM.PN ---
Subjective - Date & Time of Evaluation Date of Evaluation: 07/03/16 Time of Evaluation: 06:55 - Subjective Subjective: Surgery Progress note for Dr Barker: Pt seen and examined at bedside. No acute events overnight. States pain is well controlled at this time. Tolerating diet. Denies any nausea or vomiting. Ambulating. Denies any Headaches, dizziness, f/c, sob, cp, abd pain, urinary changes. Objective - Vital Signs/Intake and Output Vital Signs (last 24 hours): Temp Pulse Resp BP Pulse Ox 98.5 F 84 16 130/78 98 07/02/16 16:00 07/02/16 16:00 07/02/16 16:00 07/02/16 16:00 07/02/16 16:00 Intake and Output: 07/03/16 07/03/16 06:59 18:59 Intake Total 3840 Output Total 2625 Balance 1215 - Medications Medications: Current Medications Acetaminophen (Tylenol 325mg Tab) 650 mg PO Q6H PRN PRN Reason: Fever >100.4 F Last Admin: 07/01/16 22:03 Dose: 650 mg Acetaminophen (Tylenol 650 Mg Supp) 650 mg RC Q6H PRN PRN Reason: Fever >100.4 F Last Admin: 06/30/16 15:42 Dose: 650 mg Heparin Sodium (Porcine) (Heparin) 5,000 units SC Q12 [facility] PRN Reason: Protocol Last Admin: 07/02/16 22:31 Dose: 5,000 units Sodium Chloride (Sodium Chloride 0.9%) 1,000 mls @ 125 mls/hr IV .Q8H [facility] Last Admin: 07/02/16 23:42 Dose: 125 mls/hr Meropenem 1 gm/ Sodium (Chloride) 100 mls @ 100 mls/hr IVPB Q8 [facility] PRN Reason: Protocol Stop: 07/09/16 10:01 Last Admin: 07/03/16 05:52 Dose: 100 mls/hr Vancomycin HCl (Vancomycin 1gm) 250 mls @ 167 mls/hr IVPB Q12H [facility] PRN Reason: Protocol Last Admin: 07/02/16 23:40 Dose: 167 mls/hr Ondansetron HCl (Zofran Inj) 4 mg IVP Q4H PRN PRN Reason: Pain, moderate (4-7) Oxycodone/Acetaminophen (Percocet 5/325 Mg Tab) 1 tab PO Q4H PRN PRN Reason: Pain, moderate (4-7) Stop: 07/04/16 07:11 Potassium Chloride (K-Dur 20 Meq Er Tab) 20 meq PO BRK [facility] Last Admin: 07/02/16 08:38 Dose: 20 meq - Labs Labs: 07/03/16 06:30 07/02/16 06:30 - Constitutional Appears: No Acute Distress - Respiratory Exam Respiratory Exam: Clear to Ausculation Bilateral, NORMAL BREATHING PATTERN - Cardiovascular Exam Cardiovascular Exam: REGULAR RHYTHM, +S1, +S2. absent: Murmur - GI/Abdominal Exam GI & Abdominal Exam: Soft, Normal Bowel Sounds. absent: Tenderness Additional comments: excision site c/d/i with serosanguinous output - Neurological Exam Neurological Exam: Alert, Awake, CN II-XII Intact, Normal Gait, Oriented x3 Assessment and Plan - Assessment and Plan (Free Text) Assessment: 30M presents with abdominal pain s/p Laparoscopic appendectomy POD#4. - Cont pain control - Cont antibiotics Vanc & Molina as per ID recs - Drain management - Regular diet as tolerated - Monitor vitals and labs - Further recs discuss with Dr. Mj Eng IM Resident PGY-1
[2016-07-03] MEDS: Potassium Chloride 20 mEq ER Tab PO SCH (09:36)
[2016-07-03] MEDS: Vancomycin 1gm in NS 250ml 250 ML IVPB SCH (09:36)
--- NOTE | 2016-07-03 16:34 | CP.PCM.PN ---
Subjective - Date & Time of Evaluation Date of Evaluation: 07/03/16 Time of Evaluation: 11:15 - Subjective Subjective: Comfortable in bed, not in distress, no nausea or vomiting, afebrile for more than 24 hours now, eating well, much improved abdominal pain. Objective - Vital Signs/Intake and Output Vital Signs (last 24 hours): Temp Pulse Resp BP Pulse Ox 99.0 F 86 20 123/80 100 07/03/16 07:30 07/03/16 07:30 07/03/16 07:30 07/03/16 07:30 07/03/16 07:30 Intake and Output: 07/03/16 07/03/16 06:59 18:59 Intake Total 3840 Output Total 2625 Balance 1215 - Medications Medications: Current Medications Acetaminophen (Tylenol 325mg Tab) 650 mg PO Q6H PRN PRN Reason: Fever >100.4 F Last Admin: 07/01/16 22:03 Dose: 650 mg Acetaminophen (Tylenol 650 Mg Supp) 650 mg RC Q6H PRN PRN Reason: Fever >100.4 F Last Admin: 06/30/16 15:42 Dose: 650 mg Heparin Sodium (Porcine) (Heparin) 5,000 units SC Q12 [facility] PRN Reason: Protocol Last Admin: 07/03/16 09:36 Dose: 5,000 units Sodium Chloride (Sodium Chloride 0.9%) 1,000 mls @ 125 mls/hr [facility] Last Admin: 07/02/16 23:42 Dose: 125 mls/hr Meropenem 1 gm/ Sodium (Chloride) 100 mls @ 100 mls/hr IVPB Q8 [facility] PRN Reason: Protocol Stop: 07/09/16 10:01 Last Admin: 07/03/16 05:52 Dose: 100 mls/hr Vancomycin HCl (Vancomycin 1gm) 250 mls @ 167 mls/hr IVPB Q12H [facility] PRN Reason: Protocol Last Admin: 07/03/16 09:36 Dose: 167 mls/hr Ondansetron HCl (Zofran Inj) 4 mg IVP Q4H PRN PRN Reason: Pain, moderate (4-7) Oxycodone/Acetaminophen (Percocet 5/325 Mg Tab) 1 tab PO Q4H PRN PRN Reason: Pain, moderate (4-7) Stop: 07/04/16 07:11 Potassium Chloride (K-Dur 20 Meq Er Tab) 20 meq PO BRK [facility] Last Admin: 07/03/16 09:36 Dose: 20 meq - Labs Labs: 07/03/16 06:30 07/02/16 06:30 - Constitutional Appears: Non-toxic, No Acute Distress - Head Exam Head Exam: NORMAL INSPECTION - ENT Exam ENT Exam: Mucous Membranes Moist - Neck Exam Neck Exam: absent: Lymphadenopathy, Meningismus - Respiratory Exam Respiratory Exam: Decreased Breath Sounds - Cardiovascular Exam Cardiovascular Exam: +S1, +S2 - GI/Abdominal Exam GI & Abdominal Exam: Soft. absent: Tenderness Additional comments: abdominal drain with serosanguinous discharge Assessment and Plan - Assessment and Plan (Free Text) Plan: Assessment Systemic Inflammatory Response Syndrome (fever and tachycardia) in a patient post-appendectomy POD #4, so far repeat septic work up is negative, the abdominal drain does not have bacterial growth and abdominal exam is benign Plan Cultures have been negative; will change antibiotics to Rocephin and Flagyl and may consider d/c of antibiotics when the drain is removed Will monitor clinically
[2016-07-03] MEDS: cefTRIAXone 1 gm 100 ML IVPB SCH (17:17)
--- NOTE | 2016-07-04 07:28 | CP.PCM.PN ---
Subjective - Date & Time of Evaluation Date of Evaluation: 07/04/16 Time of Evaluation: 06:40 - Subjective Subjective: Surgery Progress note for Dr Barker: Pt seen and examined at bedside. No acute events overnight. Denies any pain n/v/ d at this time. Tolerating diet. Ambulating. Denies any Headaches, dizziness, f/ c, sob, cp, abd pain, urinary changes. Objective - Vital Signs/Intake and Output Vital Signs (last 24 hours): Temp Pulse Resp BP Pulse Ox 98.3 F 76 18 120/76 98 07/03/16 16:00 07/03/16 16:00 07/03/16 16:00 07/03/16 16:00 07/03/16 16:00 Intake and Output: 07/04/16 07/04/16 06:59 18:59 Intake Total 840 Output Total 25 Balance 815 - Medications Medications: Current Medications Acetaminophen (Tylenol 325mg Tab) 650 mg PO Q6H PRN PRN Reason: Fever >100.4 F Last Admin: 07/01/16 22:03 Dose: 650 mg Acetaminophen (Tylenol 650 Mg Supp) 650 mg RC Q6H PRN PRN Reason: Fever >100.4 F Last Admin: 06/30/16 15:42 Dose: 650 mg Heparin Sodium (Porcine) (Heparin) 5,000 units SC Q12 [facility] PRN Reason: Protocol Last Admin: 07/03/16 21:55 Dose: 5,000 units Sodium Chloride (Sodium Chloride 0.9%) 1,000 mls @ 125 mls/hr IV .Q8H [facility] Last Admin: 07/02/16 23:42 Dose: 125 mls/hr Ceftriaxone Sodium (Rocephin 1 Gram Ivpb) 100 mls @ 100 mls/hr IVPB DAILY [facility] PRN Reason: Protocol Last Admin: 07/03/16 17:17 Dose: 100 mls/hr Metronidazole (Flagyl) 500 mg PO Q8 [facility] PRN Reason: Protocol Last Admin: 07/04/16 05:53 Dose: 500 mg Ondansetron HCl (Zofran Inj) 4 mg IVP Q4H PRN PRN Reason: Pain, moderate (4-7) Potassium Chloride (K-Dur 20 Meq Er Tab) 20 meq PO BRK [facility] Last Admin: 07/03/16 09:36 Dose: 20 meq - Labs Labs: 07/03/16 06:30 07/02/16 06:30 - Constitutional Appears: No Acute Distress - Respiratory Exam Respiratory Exam: Clear to Ausculation Bilateral, NORMAL BREATHING PATTERN - Cardiovascular Exam Cardiovascular Exam: REGULAR RHYTHM, RRR, +S1, +S2. absent: Murmur - GI/Abdominal Exam GI & Abdominal Exam: Soft, Normal Bowel Sounds. absent: Tenderness Additional comments: drain output 50cc /24hr serosanguinous - Neurological Exam Neurological Exam: Alert, Awake, CN II-XII Intact, Normal Gait, Oriented x3 Assessment and Plan - Assessment and Plan (Free Text) Assessment: 30M presents with abdominal pain s/p Laparoscopic appendectomy POD#5. - CT abdomen shows persistent fluid consistent with appendiceal abscess [id number] - ABX Rocephin and Flagyl as per ID recs - Cont pain management - Drain management - Diet as tolerated - Monitor vitals and labs Further recs discuss with Dr. Mj Eng IM Resident PGY-1
[2016-07-04] MEDS ORDERED: Barium Sulfate Susp 2.1% w/v, 2.0% w/w 450 mL Bottle PO ONE (07:50)
[2016-07-04] MEDS ORDERED: Iohexol 350 MG/100 ML VIAL ONE (07:57)
[2016-07-04] MEDS: Potassium Chloride 20 mEq ER Tab PO SCH (07:58)
[2016-07-04 08:23] LABS: HEMATOCRIT 33.5 % (42.0-52.0); MEAN CELL VOLUME 83.3 fL (80.0-105.0); MEAN CORPUSCULAR HEMOGLOBIN 27.4 pg (25.0-35.0); MEAN CORPUSCULAR HGB CONC 32.8 g/dl (31.0-37.0); MEAN PLATELET VOLUME 8.2 fl (7.0-11.0); RED CELL DISTRIBUTION WIDTH 16.6 % (11.5-14.5)
[2016-07-04] MEDS: cefTRIAXone 1 gm 100 ML IVPB SCH (09:15)
--- NOTE | 2016-07-04 11:38 | CT ---
PROCEDURE: CT Abdomen and Pelvis with contrast HISTORY: comparison COMPARISON: 06/29/2016 TECHNIQUE: Contrast dose: 100 cc of Omni 350 Radiation dose: Total exam DLP = 450 mGy-cm. FINDINGS: LOWER THORAX: Unremarkable. LIVER: Unremarkable. No gross lesion or ductal dilatation. GALLBLADDER AND BILE DUCTS: There is a small amount of ascites surrounding the liver in the gallbladder. PANCREAS: Unremarkable. No gross lesion or ductal dilatation. SPLEEN: Unremarkable. ADRENALS: Unremarkable. No mass. KIDNEYS AND URETERS: Unremarkable. No hydronephrosis. No solid mass. VASCULATURE: Unremarkable. No aortic aneurysm. BOWEL: Unremarkable. No obstruction. No gross mural thickening. There has been recent appendectomy. A surgical drain is seen in the right lower quadrant. There is a persistent fluid collection consistent with an appendiceal abscess. This can be seen on image 113 series 2. This measures 17 x 25 mm. The surgical drain is seen adjacent to this collection. Persistent inflammatory changes are seen in the mesenteric fat in the right pericolic gutter. APPENDIX: Normal appendix. PERITONEUM: Unremarkable. No free fluid. No free air. LYMPH NODES: Unremarkable. No enlarged lymph nodes. BLADDER: Unremarkable. REPRODUCTIVE: Unremarkable. BONES: No acute fracture. OTHER FINDINGS: None. IMPRESSION: Small persistent fluid collection consistent with appendiceal abscess. See comments
--- NOTE | 2016-07-04 13:36 | CP.PCM.PN ---
Subjective - Date & Time of Evaluation Date of Evaluation: 07/04/16 Time of Evaluation: 11:15 - Subjective Subjective: Patient is feeling better, no diarrhea, no fever, much improved abdominal pain, for CT scan today. Objective - Vital Signs/Intake and Output Vital Signs (last 24 hours): Temp Pulse Resp BP Pulse Ox 98.2 F 62 18 124/81 98 07/04/16 07:56 07/04/16 07:56 07/04/16 07:56 07/04/16 07:56 07/04/16 07:56 Intake and Output: 07/04/16 07/04/16 06:59 18:59 Intake Total 840 Output Total 25 Balance 815 - Medications Medications: Current Medications Acetaminophen (Tylenol 325mg Tab) 650 mg PO Q6H PRN PRN Reason: Fever >100.4 F Last Admin: 07/01/16 22:03 Dose: 650 mg Acetaminophen (Tylenol 650 Mg Supp) 650 mg RC Q6H PRN PRN Reason: Fever >100.4 F Last Admin: 06/30/16 15:42 Dose: 650 mg Heparin Sodium (Porcine) (Heparin) 5,000 units SC Q12 [facility] PRN Reason: Protocol Last Admin: 07/04/16 09:15 Dose: 5,000 units Sodium Chloride (Sodium Chloride 0.9%) 1,000 mls @ 125 mls/hr IV [facility]H [facility] Last Admin: 07/02/16 23:42 Dose: 125 mls/hr Ceftriaxone Sodium (Rocephin 1 Gram Ivpb) 100 mls @ 100 mls/hr IVPB DAILY [facility] PRN Reason: Protocol Last Admin: 07/04/16 09:15 Dose: 100 mls/hr Metronidazole (Flagyl) 500 mg PO Q8 [facility] PRN Reason: Protocol Last Admin: 07/04/16 05:53 Dose: 500 mg Ondansetron HCl (Zofran Inj) 4 mg IVP Q4H PRN PRN Reason: Pain, moderate (4-7) Potassium Chloride (K-Dur 20 Meq Er Tab) 20 meq PO BRK [facility] Last Admin: 07/04/16 07:58 Dose: 20 meq - Labs Labs: 07/04/16 07:47 07/02/16 06:30 - Constitutional Appears: Non-toxic, No Acute Distress - Head Exam Head Exam: NORMAL INSPECTION - Respiratory Exam Respiratory Exam: Decreased Breath Sounds - Cardiovascular Exam Cardiovascular Exam: +S1, +S2 - GI/Abdominal Exam GI & Abdominal Exam: Soft. absent: Tenderness Additional comments: abdominal drain in place Assessment and Plan - Assessment and Plan (Free Text) Plan: Assessment Sepsis secondary to acute appendicitis with appendiceal abscess S/P laparoscopic appendectomy POD #5; E. coli was isolated from the abdominal fluid and repeat CT scan done today is still showing persistent small collection ( periappendiceal abscess) Plan continue Rocephin and Flagyl and monitor clinically; follow up surgery plans
[2016-07-04 17:16] VITALS: RESP 20
[2016-07-05] MEDS: cefTRIAXone 1 gm 100 ML IVPB SCH (10:14)
[2016-07-05] MEDS: Potassium Chloride 20 mEq ER Tab PO SCH (10:15)
--- NOTE | 2016-07-05 12:02 | PN ---
DATE: 07/05/2016 SUBJECTIVE: The patient is in bed in no acute distress, nontoxic, was seen earlier. He states he kessler d an uneventful night. His appetite is good. PHYSICAL EXAMINATION: VITAL SIGNS: Temperature is 98, blood pressure is 130/70, respiratory rate of 16. HEENT: Unremarkable. NECK: Supple. LUNGS: Have decreased breath sounds. HEART: Normal S1, S2. ABDOMEN: Soft, nontender. LABORATORY EXAMINATION: Reveals the patient's white count is down to 9000, hemoglobin 11 and BUN of 5, creatinine of 0.6, procalcitonin 0.55. Urinalysis is noted. Microbiology reviewed and CAT scan o f the abdomen and pelvis is noted. Small persistent fluid collection consistent with appendiceal abs cess. ASSESSMENT AND PLAN: A 30-year-old male with sepsis secondary to acute appendicitis and appendiceal abscess, status post laparoscopic appendectomy, post-procedure day #6 with Escherichia coli isolated, currently on ceftriaxone and Flagyl. Review of the orders reveals the antibiotics to be active. We will follow closely with you. Dorian Larson MD cc: [id number] TT: 07/05/2016 12:01:08 Confirmation # [id number] Dictation # [id number] tn
[2016-07-05 16:51] VITALS: O2SAT 99
--- NOTE | 2016-07-05 21:29 | CP.PCM.PN ---
Subjective - Date & Time of Evaluation Date of Evaluation: 07/05/16 Time of Evaluation: 12:25 - Subjective Subjective: GENERAL SURGERY PROGRESS NOTE for Dr. Barker Pt s/e today with Dr. Simpson. JERONIMO. Denies nausea, vomiting, or any other symptoms. Minimal output in the drain. Tolerating regular diet Objective - Vital Signs/Intake and Output Vital Signs (last 24 hours): Temp Pulse Resp BP Pulse Ox 98 F 63 20 115/69 99 07/05/16 16:00 07/05/16 16:00 07/05/16 16:00 07/05/16 16:00 07/05/16 16:00 Intake and Output: 07/05/16 07/06/16 18:59 06:59 Intake Total 720 Balance 720 - Medications Medications: Current Medications Acetaminophen (Tylenol 325mg Tab) 650 mg PO Q6H PRN PRN Reason: Fever >100.4 F Last Admin: 07/01/16 22:03 Dose: 650 mg Acetaminophen (Tylenol 650 Mg Supp) 650 mg RC Q6H PRN PRN Reason: Fever >100.4 F Last Admin: 06/30/16 15:42 Dose: 650 mg Heparin Sodium (Porcine) (Heparin) 5,000 units SC Q12 CHALINO PRN Reason: Protocol Last Admin: 07/05/16 10:15 Dose: 5,000 units Sodium Chloride (Sodium Chloride 0.9%) 1,000 mls @ 125 mls/hr IV .Q8H [facility] Last Admin: 07/02/16 23:42 Dose: 125 mls/hr Ceftriaxone Sodium (Rocephin 1 Gram Ivpb) 100 mls @ 100 mls/hr IVPB DAILY CHALINO PRN Reason: Protocol Last Admin: 07/05/16 10:14 Dose: 100 mls/hr Metronidazole (Flagyl) 500 mg PO Q8 CHALINO PRN Reason: Protocol Last Admin: 07/05/16 13:06 Dose: 500 mg Ondansetron HCl (Zofran Inj) 4 mg IVP Q4H PRN PRN Reason: Pain, moderate (4-7) Potassium Chloride (K-Dur 20 Meq Er Tab) 20 meq PO BRK [facility] Last Admin: 07/05/16 10:15 Dose: 20 meq - Labs Labs: 07/04/16 07:47 07/02/16 06:30 - Constitutional Appears: Well, Non-toxic, No Acute Distress - Head Exam Head Exam: ATRAUMATIC, NORMOCEPHALIC - Eye Exam Eye Exam: Normal appearance - ENT Exam ENT Exam: Mucous Membranes Moist - Respiratory Exam Respiratory Exam: NORMAL BREATHING PATTERN. absent: Accessory Muscle Use, Respiratory Distress - GI/Abdominal Exam GI & Abdominal Exam: Soft. absent: Distended, Tenderness - Extremities Exam Extremities Exam: Normal Inspection. absent: Calf Tenderness, Pedal Edema - Back Exam Back Exam: NORMAL INSPECTION - Neurological Exam Neurological Exam: Alert, Awake, Oriented x3 - Psychiatric Exam Psychiatric exam: Normal Affect, Normal Mood - Skin Skin Exam: Dry, Intact, Normal Color, Warm Assessment and Plan - Assessment and Plan (Free Text) Assessment: 30M presents with abdominal pain s/p Laparoscopic appendectomy POD#6. afebrile, VSS WBC wnl Plan - D/C'd CONCEPCION drain - ABX Rocephin and Flagyl as per ID recs - Cont pain management - Diet as tolerated - Monitor vitals and labs - Possible D/C tomorrow Discussed and examined with Dr. Mj Lewis, PGY1
[2016-07-06 07:59] VITALS: BP 107/67; PULSE 57; TEMP 97.9
[2016-07-06 09:13] LABS: HEMATOCRIT 34.5 % (42.0-52.0); MEAN CELL VOLUME 83.5 fL (80.0-105.0); MEAN CORPUSCULAR HEMOGLOBIN 27.6 pg (25.0-35.0); MEAN PLATELET VOLUME 8.3 fl (7.0-11.0); RED CELL DISTRIBUTION WIDTH 16.9 % (11.5-14.5)
[2016-07-06] MEDS: cefTRIAXone 1 gm 100 ML IVPB SCH (09:36)
[2016-07-06] MEDS: Potassium Chloride 20 mEq ER Tab PO SCH (09:37)
--- NOTE | 2016-07-06 11:45 | CP.PCM.DIS ---
Provider - Provider Date of Admission: 06/29/16 04:29 Attending physician: Forrest Barker MD Consults: MARYURI Tatum Time Spent in preparation of Discharge (in minutes): 30 Diagnosis - Discharge Diagnosis (1) Appendicitis Status: Acute Hospital Course - Lab Results Lab Results: Micro Results 07/02/16 12:23 Blood-Venous Blood Culture - Preliminary NO GROWTH AFTER 3 DAYS 07/02/16 12:23 Blood-Venous Blood Culture - Preliminary NO GROWTH AFTER 3 DAYS 07/02/16 18:50 Abdomen Gram Stain - Final 07/02/16 18:50 Abdomen Wound Culture - Final No growth. 07/02/16 11:13 Urine,Random Urine Culture - Final No Growth (<1,000 CFU/ML) 06/29/16 13:34 Peritoneal Fluid Anaerobic Culture - Final NO ANAEROBES ISOLATED. 06/29/16 13:34 Other: Please Indicate Gram Stain - Final 06/29/16 13:34 Other: Please Indicate Wound Culture - Final Escherichia Coli Most Recent Lab Values WBC 10.0 10^3/ul (4.5-11.0) 07/06/16 09:00 RBC 4.13 10^6/uL (3.5-6.1) 07/06/16 09:00 Hgb 11.4 gm/dL (14.0-18.0) L 07/06/16 09:00 Hct 34.5 % (42.0-52.0) L 07/06/16 09:00 MCV 83.5 fL (80.0-105.0) 07/06/16 09:00 MCH 27.6 pg (25.0-35.0) 07/06/16 09:00 MCHC 33.0 g/dl (31.0-37.0) 07/06/16 09:00 RDW 16.9 % (11.5-14.5) H 07/06/16 09:00 Plt Count 516 10^3/uL (120.0-450.0) H 07/06/16 09:00 MPV 8.3 fl (7.0-11.0) 07/06/16 09:00 Gran % 74.7 % (50.0-68.0) H 07/02/16 06:30 Lymph % (Auto) 11.4 % (22.0-35.0) L 07/02/16 06:30 Gem % (Auto) 11.6 % (1.0-6.0) H 07/02/16 06:30 Eos % (Auto) 2.2 % (1.5-5.0) 07/02/16 06:30 Baso % (Auto) 0.1 % (0.0-3.0) 07/02/16 06:30 Gran # 8.15 (1.4-6.5) H 07/02/16 06:30 Lymph # 1.3 (1.2-3.4) 07/02/16 06:30 Gem # 1.3 (0.1-0.6) H 07/02/16 06:30 Eos # 0.2 (0.0-0.7) 07/02/16 06:30 Baso # 0.01 K/mm3 (0.0-2.0) 07/02/16 06:30 Sodium 138 mmol/L (132-148) 07/02/16 06:30 Potassium 4.0 mmol/L (3.6-5.0) 07/02/16 06:30 Chloride 100 mmol/L (95-110) 07/02/16 06:30 Carbon Dioxide 31 mmol/L (21-33) 07/02/16 06:30 Anion Gap 11 (10-20) 07/02/16 06:30 BUN 5 mg/dL (7-21) L 07/02/16 06:30 Creatinine 0.6 mg/dL (0.5-1.4) 07/02/16 06:30 Est GFR ( Amer) > 60 07/02/16 06:30 Est GFR (Non-Af Amer) > 60 07/02/16 06:30 Random Glucose 128 mg/dL (70-110) H 07/02/16 06:30 Calcium 8.4 mg/dL (8.4-10.5) 07/02/16 06:30 Total Bilirubin 0.6 mg/dL (0.2-1.3) 07/02/16 06:30 AST 32 U/L (15-59) 07/02/16 06:30 ALT 24 U/L (7-56) 07/02/16 06:30 Alkaline Phosphatase 95 U/L (38-133) 07/02/16 06:30 Total Protein 7.0 g/dL (5.8-8.3) 07/02/16 06:30 Albumin 3.2 g/dL (3.0-4.8) 07/02/16 06:30 Globulin 3.8 gm/dL 07/02/16 06:30 Albumin/Globulin Ratio 0.8 (1.1-1.8) L 07/02/16 06:30 Lipase 101 U/L (23-300) 06/29/16 01:00 Procalcitonin 0.55 NG/ML (0.19-0.49) H 07/02/16 07:00 Urine Color Yellow (YELLOW) 07/02/16 11:13 Urine Appearance Clear (CLEAR) 07/02/16 11:13 Urine pH 7.0 (4.7-8.0) 07/02/16 11:13 Ur Specific Finley 1.015 (1.005-1.035) 07/02/16 11:13 Urine Protein Negative mg/dL (<30 mg/dL) 07/02/16 11:13 Urine Glucose (UA) 250 mg/dL (NEGATIVE) H 07/02/16 11:13 Urine Ketones Negative mg/dL (NEGATIVE) 07/02/16 11:13 Urine Blood Negative (NEGATIVE) 07/02/16 11:13 Urine Nitrate Negative (NEGATIVE) 07/02/16 11:13 Urine Bilirubin Negative (NEGATIVE) 07/02/16 11:13 Urine Urobilinogen 0.2 E.U./dL (<1 E.U./dL) 07/02/16 11:13 Ur Leukocyte Esterase Negative Attila/uL (NEGATIVE) 07/02/16 11:13 - Hospital Course Hospital Course: 30M w. no significant PMH, presented to ED on 06/29/[address] for ab[address] pain and CT showed acute appendicitis w. microperf and abscess formation. Pt went to OR on laparoscopic appendectomy. Post-operatively pt was tx w. extended course of IV abx and has been doing well. Pt has had no leukocytosis since operation and has been afebrile since 07/01. On 07/04/[address] showed a small abscess. Case was discussed w. IR, per IR in the absence of fever and leukocytosis, there is no indication for drainage at this time. Today when pt was seen, he states that he is doing well. His pain is controlled. He denies F/C. He is tolerating regular diet, no N/V/D. He is ambulating w. out difficulty and is going to the bathroom w. out issue. Pt will be clear for D/C and will be given Rx for 1 week course of abx w. instructions to f/u w. Dr. Barker in 1 week. - Date & Time of H&P Date of H&P: 06/29/16 Time of H&P: 08:20 Discharge Exam - Head Exam Head Exam: ATRAUMATIC, NORMOCEPHALIC - Eye Exam Eye Exam: EOMI - ENT Exam ENT Exam: Mucous Membranes Moist, Normal External Ear Exam - Neck Exam Neck exam: Full Rom - Respiratory Exam Respiratory Exam: NORMAL BREATHING PATTERN. absent: Accessory Muscle Use, Respiratory Distress - GI/Abdominal Exam GI & Abdominal Exam: Soft. absent: Distended, Firm, Guarding, Rebound, Rigid, Tenderness Additional comments: blisters on abd 2/2 reaction to tape - Neurological Exam Neurological exam: Alert, Oriented x3 - Psychiatric Exam Psychiatric exam: Normal Affect, Normal Mood Discharge Plan - Discharge Medications Prescriptions: Ciprofloxacin HCl [Cipro] 500 mg PO Q12 #14 tablet Metronidazole [Flagyl] 500 mg PO Q8 #21 tablet - Follow Up Plan Condition: GOOD Disposition: HOME/ ROUTINE Patient education suggested?: Yes Instructions: Influenza Virus Vaccine (By injection), Appendicitis (DC), Pneumococcal Vaccine for Adults (DC), Laparoscopic Appendectomy (DC) Additional Instructions: You may return to activity as tolerated. Take Rx as directed. Follow up w. Dr. Barker in 1 week. If symptoms worsen or concerns arise, return to ED. Referrals: Forrest Barker MD [Staff Provider] -
--- NOTE | 2016-07-06 13:27 | PN ---
DATE: 07/06/2016 The patient is in bed, in no acute distress, nontoxic. The patient was seen earlier. PHYSICAL EXAMINATION: VITAL SIGNS: Temperature is 98, blood pressure is 107/60, respiratory rate of 16. HEENT: Unremarkable. NECK: Supple. LUNGS: Have decreased breath sounds. HEART: Normal S1, S2. ABDOMEN: Soft. LABORATORY EXAMINATION: Reveals a white count 10,000, hemoglobin 11, platelets of 516. Chemistries are noted. Microbiology reveals E. coli. ASSESSMENT AND PLAN: A 30-year-old male with sepsis secondary to acute appendicitis, appendiceal abs cess, status post laparoscopic appendectomy, post-procedure day #7 with Escherichia coli isolated. C urrently on ceftriaxone and Flagyl. The patient is doing well this morning, tolerating his diet and normal white count, afebrile and drainage is out. Dorian Larson MD cc: 350 TT: 07/06/2016 13:27:38 Confirmation # [id number] Dictation # [id number]
== END 2016-07-06 13:51 | disposition home or self-care (01) | DRG 898 ==
LOC: ED 00:11 → ERH 04:29 → 5RSO 05:33
PROVIDERS: ADMIT Surgery; ATTEND Surgery
PROC: 0DTJ4ZZ Resection of Appendix, Percutaneous Endoscopic Approach (ICD-10-PCS; principal; 2016-06-29 12:30)
DX: A41.9 Sepsis, unspecified organism (principal); K35.3 Acute appendicitis with localized peritonitis; B96.20 Unspecified Escherichia coli [E. coli] as the cause of diseases classified elsewhere